=== PATIENT | male | born 1950 | race Caucasian/White ===

== ENCOUNTER → 2017-04-26 | Outpatient (CLI) | payer BC, OTHER ==
[~2017-04-26] MED LIST: ACET-749 PO; ASPI81TA28 PO; ATOR-22 PO; EZET10TA63 PO; IBUP-1050 PO; LEVO100T7 PO; PRLSR20 PO
[2017-04-26 12:01] LABS: POTASSIUM 4.5 mmol/L (3.5-5.1)
== END | disposition home or self-care (01) ==
LOC: C.CPL 10:13
PROVIDERS: ATTEND Orthopaedic Surgery Sports Medicine
DX: Z01.818 Encounter for other preprocedural examination (principal); Z01.810 Encounter for preprocedural cardiovascular examination

== ENCOUNTER → 2017-05-02 | Day surgery (SDC) | payer OTHER ==
[2017-04-27 08:34] VITALS: Ht 172.7 cm; Wt 95.5 kg
[~2017-05-02] VITALS: Ht 172.7 cm; Wt 95.5 kg
[~2017-05-02] MED LIST changes: +ACETAMINOPHEN/CODEINE 300/30MG TAB PO PRN; +ATROPINE SULFATE 0.1 MG/ML 5ML SYR IV PRN; +BUPIVACAINE 0.5 % 5 MG/1 ML MPF 30ML VIAL ONE; +BUPIVACAINE/EPINEPHRINE 0.5% MPF 1:200,000 30 ML VIAL ONE; +CEFAZOLIN 2000MG IV PUSH 10 ML IV SCH; +DEXAMETHASONE SOD INJ 4 MG/ML VIAL ONE; +EpHEDrine SULFATE INJ 50 MG/ML AMP IV PRN; +FENTANYL CITRATE INJ 50 MCG/1 ML 2 ML VIAL IV PRN; +FENTANYL CITRATE INJ 50 MCG/1 ML 2 ML VIAL ONE; +FLUMAZENIL 0.1 MG/1 ML 10 ML VIAL IV PRN; +HYDROmorphone INJ 2 MG/ML SYR/VIAL IV PRN; +LABETALOL HCL IV 5 MG/ML 20ML IV PRN; +LACTATED RINGER'S 1000ML 1,000 ML IV SCH; +LIDOCAINE HCL 2% 2 ML VIAL (20MG/ML) ONE; +LIDOCAINE HCL 2% LOCAL 20 ML VIAL ONE; +MEPERIDINE HCL 25 MG/ML CARP IV PRN; +MIDAZOLAM HCL 1 MG/ML 2ML VIAL ONE; +NALOXONE HCL 0.4 MG/1 ML VIAL/CARP IV PRN; +ONDANSETRON INJ 2 MG/ML 2 ML VIAL IV PRN; +ONDANSETRON INJ 2 MG/ML 2 ML VIAL ONE; +PHENYLEPHRINE 100MCG/ML 5ML SYR IV PRN; +PROPOFOL IV EMULSION 10 MG/ML 20 ML VIAL IV ONE; +SODIUM CHLORIDE 0.9% 1000ML 1,000 ML IV SCH
--- NOTE | 2017-05-02 07:53 | History & Physical Bridge - [place] ---
H&P Re-Evaluation Bridge Note: I have examined the patient, reviewed the History & Physical and in the interval since the performance of the History & Physical I have noted the following changes of clinical significance: No changes noted
--- NOTE | 2017-05-02 09:56 | Discharge Instructions-SurgCtr ---
Discharge Instructions Date of Service May 02, 2017. Visit Reason for Visit: Left Small Finger Trigger Finger; Right Small Fing Discharge Discharge Diagnosis / Problem: left small finger trigger finger, right small finger cyst Discharge Goals Goal(s): Decrease discomfort, Improve function, Therapeutic intervention Activity Recommendations Activity Limitations: per Instructions/Follow-up section Anesthesia . Post Anesthesia Instructions: If you have had General Anesthesia or IV Sedation: * Do not drive today. * Resume driving when surgeon permits. * Do not make important decisions or sign legal documents today. * Call surgeon for: 1. Temperature elevations greater than 101 degrees F. 2. Uncontrollable pain. 3. Excessive bleeding. 4. Persistent nausea and vomiting. 5. Medication intolerance (nausea, vomiting or rash). * For nausea and vomiting use only clear liquids such as: tea, soda, bouillon until nausea subsides, then gradually increase diet as tolerated. * If you have any concerns or questions, call your surgeon's office. If physician is unavailable and it is an emergency, call 911 or go to the nearest emergency room. . Instructions / Follow-Up Instructions / Follow-Up MEDICATIONS: * Resume previous medications unless instructed otherwise by your surgeon. * Always take pain medication on a full stomach or with food to avoid upset stomach. * Do not drink alcohol or drive while taking narcotics. * Ibuprofen or Tylenol may be taken if narcotic not needed. SPECIAL CARE INSTRUCTIONS: __ None __ Keep extremity elevated and iced x 48 hours; apply ice 20-30 minutes 8-10 times/day. May remove at night. __ Sling __24 hrs/day __ Remove at night __ Shoulder Immobilizer __ 24 hrs/day __ Remove at night _x_ Dressing _x_ Maintain until seen in office, may shower with plastic over site __ Remove dressings in 24-48 hours and then may shower __ Cover incisions with band-aids after showering __ Do not remove steri-strips Call physician if chills or temperature rises above 102 degrees or pain unrelieved by prescribed pain medications at . . follow up in 2 weeks Diet Recommendations Home Diet: resume previous diet Procedures Procedures Performed: Right Small Finger Mass Excision; Left Small Finger Trigger Finger Release Pending Studies Studies pending at discharge: no Medical Emergencies . Who to Call and When: Medical Emergencies: If at any time you feel your situation is an emergency, please call 911 immediately. . Non-Emergent Contact Non-Emergency issues call your: Surgeon . . "Provider Documentation" section prepared by Efe Gaitan. .
--- NOTE | 2017-05-02 09:57 | [facility] Post Operative Brief Note ---
Immediate Operative Summary Operative Date May 02, 2017. Pre-Operative Diagnosis Left Small Trigger Finger Right Small Finger Mucous Cyst Post-Operative Diagnosis Same Procedure(s) Performed Right Small Finger Mucous cyst/Mass Excision; Left Small Finger Trigger Finger Release Surgeon Dr. Bolaños Senior Controller Surgeon(s) Raf Gaitan PA-C Estimated Blood Loss Minimal Findings Trigger Finger Left; Right Mucous Cyst Specimens None Anesthesia Local with IV Sedation Complication(s) None Disposition Recovery Room / PACU
--- NOTE | 2017-05-02 10:09 | Anesthesia Progress Nt - [facility] ---
Anesthesia Post Op Note Date & Time May 02, 2017 at 10:09 Vital Signs Pain Intensity: 0 Vital Signs Past 12 Hours Date Time Temp Pulse Resp B/P (MAP) Pulse Ox O2 Delivery O2 Flow Rate FiO2 05/02/17 09:57 36.2 50 20 131/84 (100) 98 Room Air 05/02/17 07:54 36.2 64 16 139/94 (109) 97 Room Air Notes Mental Status: alert / awake / arousable, participated in evaluation Pt Amnestic to Procedure: Yes Nausea / Vomiting: adequately controlled Pain: adequately controlled Airway Patency, RR, SpO2: stable & adequate BP & HR: stable & adequate Hydration State: stable & adequate Anesthetic Complications: no major complications apparent
[2017-05-02 10:24] VITALS: BP 132/85; PULSE 52; TEMP 36.6; O2SAT 97
--- NOTE | 2017-05-02 12:40 | OPERATIVE REPORT ---
DATE OF OPERATION: 05/02/2017 SURGEON: Aki Bolaños MD SANITATION SUPERINTENDENT: ANAID Webster PREOPERATIVE DIAGNOSES: 1. Left small finger trigger finger with underlying swan neck deformity. 2. Right small finger distal interphalangeal symptomatic mucous cyst. POSTOPERATIVE DIAGNOSIS: Same. PROCEDURE PERFORMED: 1. Left small finger trigger finger/A1 sherwin release. 2. Excision of right small finger DIP mucous cyst. COMPLICATIONS: None. ESTIMATED BLOOD LOSS: Minimal. TOURNIQUET TIME: Left side tourniquet was 5 minutes at 250 mmHg. Right side tourniquet time was 10 minutes at 250 mmHg. ANESTHESIA: Local with IV sedation. OPERATIVE INDICATIONS: The patient is a 66-year-old gentleman who has had a long history of left hand problems related his small finger. He had a significant injury many years ago and developed a swan neck deformity. Over time, he has developed triggering and locking of his finger. This was felt to be related somewhat to a swan neck deformity but also due to the true trigger finger. 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 I felt it best to proceed with a trigger finger release first. He may need additional treatment to his swan neck deformity versus bracing. On inspection of the right finger, he has had this mucous cyst present for several years. It has gradually gotten worse and really deformed his nail. He desired to have this excised. OPERATIVE PROCEDURE: The patient taken to the operating room, identified and placed on operative table in supine position. All contacts were appropriately padded. IV antibiotics were provided by the anesthesia team. Some IV sedation was provided. A left upper extremity tourniquet was then placed and the left hand was cleaned with alcohol. 8 mL of a 50:50 combination of 0.5% Marcaine and 2% lidocaine were then injected at the base of the small finger and the left side in the area of the proposed incision site. The right hand was then cleaned with alcohol as well. I did a digital block of the right small finger using 10 mL of a 50:50 combination of 0.5% Marcaine and 2% lidocaine. Attention was first drawn to the left hand. Left arm was prepped and draped in usual sterile fashion. Left arm was elevated and exsanguinated with Esmarch and tourniquet was placed at 250 mmHg. A transverse incision was made at the base of the ring finger at the distal palmar crease. Blunt dissection was carried out through the subcutaneous tissue down to the level of the sherwin system. The A1 sherwin was identified and transected with the use of scissors. He did have quite a bit of inflammation of the tendon itself, but there was really noted degenerative changes in the tendon. The finger was taken through an active and active assisted range of motion was no further catching or locking. He continued to have swan neck deformity which was expected. The tourniquet was then let down for a tourniquet time of 5 minutes. Hemostasis was assured with use of electrocautery. The skin was then closed with 5-0 nylon suture in a horizontal mattress and I tightened this up a bit to hopefully may be cause a tenodesed effect on the swan neck deformity. The left hand was then cleaned with alcohol and a sterile dressing of Xeroform, 4 x 4, sterile cast padding and Krishna bandage were applied. Attention was then drawn to the right hand. The right arm was elevated and exsanguinated with Esmarch and tourniquet was placed at 250 mmHg. A Marco Antonio type incision was made over the DIP joint incorporating the cyst. I really felt like I could probably dissect the cyst off the skin, so I made an incision and then very carefully peeled the skin back within an ulnar based flap. I did enter the cyst itself. I then with a knife excised as much of the cyst tissue as possible without damaging the nail. I also removed the osteophytes at the IP joint and all tissue between the extensor tendon and collateral ligament. Once this was complete, I cauterized the area extensively. The tourniquet was then let down for a tourniquet time 10 minutes. Hemostasis was assured with use of electrocautery along with a pressure. The right small finger was then irrigated and the skin was closed with 5-0 nylon suture in a simple fashion. The hand was then cleaned and dried and a sterile dressing of Xeroform, 4 x 4's, and a 1 inch Hair wrap followed by a Coban wrap were applied. The patient then transferred to the recovery room in stable condition. The patient tolerated the procedure with no complications. All needle and sponge counts were correct at the end of the operation. I attest to the content of the Intraoperative Record and any orders documented therein. Any exception s are noted below.
== END | disposition home or self-care (01) ==
LOC: X.SURG 07:37
PROVIDERS: ATTEND Orthopaedic Surgery Sports Medicine
DX: M65.352 Trigger finger, left little finger (principal); M20.032 Swan-neck deformity of left finger(s); L72.3 Sebaceous cyst; Z98.890 Other specified postprocedural states; E03.9 Hypothyroidism, unspecified; E66.9 Obesity, unspecified; Z79.82 Long term (current) use of aspirin; Z79.899 Other long term (current) drug therapy